=== PATIENT | male | born 1990 | race Caucasian/White ===

== ENCOUNTER 2019-12-18 00:07 | Emergency (ER) | payer OTHER, BC ==
[2019-12-18] MEDS ORDERED: Sodium Chloride 0.9% 1,000 ML IRR PRN (00:45)
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
[2019-12-18] MEDS ORDERED: Tetracaine HCl/PF 0.5% 4 ML Bottle EYERT ONE (00:47)
[2019-12-18] MEDS: Tetracaine HCl/PF 0.5% 4 ML Bottle ONE ×2 (00:57→01:02)
== END 2019-12-18 01:15 | disposition home or self-care (01) ==
LOC: MW.ED 00:07
DX: T56.4X1A Toxic effect of copper and its compounds, accidental (unintentional), initial encounter (principal); T26.61XA Corrosion of cornea and conjunctival sac, right eye, initial encounter; Y99.0 Civilian activity done for income or pay
CPT/HCPCS: 99283